=== PATIENT | female | born 1995 | race American Indian/Alaskan Native ===

== ENCOUNTER 2017-07-24 15:17 | Emergency (ER) | payer OTHER ==
[2017-07-24 16:21] LABS: Basophils % (Auto) 0.6 % (0.0-1.8); Eosinophils % (Auto) 1.4 % (0.0-4.3); Hematocrit 38.5 % (30.3-42.9); Mean Corpuscular HGB Conc 34 % (30-34); Mean Corpuscular Hemoglobin 31 pg (28-32); Mean Corpuscular Volume 92 fl (79-97); Platelet Count 298 K/mm3 (140-440); Red Cell Distribution Width 13.1 % (13.2-15.2); White Blood Count 5.1 K/mm3 (4.5-11.0)
[2017-07-24 17:22] LABS: Bilirubin,Urine NEG (Negative); Blood,Urine LG (Negative); Ketones,Urine NEG (Negative); Leukocyte Esterase,Urine NEG (Negative); Mucus,Urine FEW /HPF; Nitrite,Urine NEG (Negative); Protein,Urine <15 mg/dL mg/dL (Negative)
--- NOTE | 2017-07-25 01:11 | Emergency Department Report ---
ED Abdominal Pain HPI - General Chief Complaint: Vaginal Bleeding Stated Complaint: PREG, VAGINAL BLEEDING Time Seen by Provider: 07/25/17 01:10 Source: patient Mode of arrival: Ambulatory Limitations: No Limitations - History of Present Illness Initial Comments: Patient is a 21-year-old female that presents to emergency room with vaginal bleeding and abdominal cramping and lower back pain 1 day. States that the vaginal bleeding and large clots and believes that she is having a miscarriage. She complains of nausea and vomiting as well in the morning 5 days patient states she was taking control pills to regulate her cycle but stopped the control when she started having morning sickness 5 days ago. He denies fever or chills and chest pain and shortness of breath. Patient complains of fatigue and weakness MD Complaint: abdominal pain -: Sudden Location: LLQ, RLQ Severity: moderate Severity scale (0 -10): 5 Quality: cramping Consistency: constant Improves With: vomiting, rest Worsens With: eating, movement Associated Symptoms: nausea, vomiting - Related Data LMP Date: 07/06/17 Allergies Allergy/AdvReac Type Severity Reaction Status Date / Time ceftriaxone [From Rocephin] Allergy Swelling Verified 07/24/17 15:37 ED Review of Systems ROS: Stated complaint: PREG, VAGINAL BLEEDING Other details as noted in HPI Comment: All other systems reviewed and negative Constitutional: no symptoms reported Respiratory: no symptoms reported Endocrine: no symptoms reported Gastrointestinal: as per HPI, abdominal pain, nausea, vomiting Musculoskeletal: as per HPI, back pain ED Past Medical Hx - Past Medical History Previous Medical History?: No - Surgical History Past Surgical History?: No - Family History Family history: hypertension - Social History Smoking Status: Never Smoker Substance Use Type: None, Prescribed ED Physical Exam - General Limitations: No Limitations General appearance: alert, in no apparent distress - Head Head exam: Present: atraumatic, normocephalic - Eye Eye exam: Present: normal appearance - ENT ENT exam: Present: mucous membranes moist - Neck Neck exam: Present: normal inspection - Respiratory Respiratory exam: Present: normal lung sounds bilaterally. Absent: respiratory distress - Cardiovascular Cardiovascular Exam: Present: regular rate, normal rhythm. Absent: systolic murmur, diastolic murmur, rubs, gallop - GI/Abdominal GI/Abdominal exam: Present: soft, tenderness (bilateral lower quadrant tenderness. Suprapubic tenderness), normal bowel sounds - Extremities Exam Extremities exam: Present: normal inspection - Back Exam Back exam: Present: normal inspection - Neurological Exam Neurological exam: Present: alert, oriented X3 - Psychiatric Psychiatric exam: Present: normal affect, normal mood - Skin Skin exam: Present: warm, dry, intact, normal color. Absent: rash ED Course Vital Signs 07/24/17 07/24/17 07/25/17 15:29 22:39 00:55 Temperature 98.2 F 98.2 F 97.9 F Pulse Rate 70 77 72 Respiratory 16 16 16 Rate Blood Pressure 133/83 Blood Pressure 122/75 120/69 [Right] O2 Sat by Pulse 100 99 100 Oximetry ED Medical Decision Making - Lab Data Result diagrams: 07/24/17 16:04 - Radiology Data Radiology results: report reviewed No acute findings except for enteritis - Medical Decision Making Patient is stable for discharge. All labs and diagnostics reviewed - Differential Diagnosis preg. abd pain. break through bleeding Critical care attestation.: If time is entered above; I have spent that time in minutes in the direct care of this critically ill patient, excluding procedure time. ED Disposition Clinical Impression: Abdominal pain, Breakthrough bleeding on control pills, Gastroenteritis, Nausea & vomiting Disposition: DC-01 TO HOME OR SELFCARE Is pt being admited?: No Does the pt Need Aspirin: No Condition: Stable Instructions: Oral Contraceptives (By mouth), Acute Abdominal Pain (ED), Gastroenteritis (ED) Additional Instructions: Patient to follow up with [employer] and PCP within 3-5 days. Return to ER if condition worsens. Patient increase water. Lora diet. Patient to take Tylenol ibuprofen when necessary for pain. Referrals: PRIMARY CARE, [Primary Care Provider] - 3-5 Days Time of Disposition: 04:13
--- NOTE | 2017-07-25 01:58 | Cat Scan Report ---
FINAL REPORT EXAM: CT ABDOMEN PELVIS WO CON HISTORY: abd pain TECHNIQUE: Routine axial imaging was obtained of the abdomen and pelvis without oral or IV contrast. Sagittal and coronal reconstructions were reviewed. FINDINGS: The lung bases are clear. For pleural fluid is not seen. The liver, spleen, gallbladder, pancreas and adrenal glands appear normal. The kidneys show no evidence of stones or hydronephrosis. The bowel loops are normal in caliber. There are multiple small bowel loops in the pelvis containing fluid which are not distended. A mild enteritis cannot be excluded. The colon is normal in caliber. In the pelvis there is a small amount of free fluid in the cul-de-sac. The uterus and bladder appear normal. There are small follicles both ovaries. The appendix is not enlarged. The skeletal structures appear well maintained. IMPRESSION: Multiple fluid-filled nondistended loops of small bowel in the pelvis. A mild nonspecific enteritis cannot be excluded. No evidence of renal stones or obstructive uropathy. Small amount of free fluid in the cul-de-sac.
[2017-07-25 02:41] VITALS: BP 120/69
== END 2017-07-25 04:57 | disposition home or self-care (01) ==
LOC: ED 15:17
DX: N93.9 Abnormal uterine and vaginal bleeding, unspecified (principal); K52.9 Noninfective gastroenteritis and colitis, unspecified; Z88.8 Allergy status to other drugs, medicaments and biological substances
CPT/HCPCS: 36415; 74176; 81001; 84702; 84703; 85025; 86850; 86900; 86901